=== PATIENT | male | born 1945 | race Caucasian/White ===

== ENCOUNTER 2019-11-11 06:21 | Day surgery (SDC) | payer OTHER ==
[2019-11-09 12:34] LABS: BASOPHILS % (AUTO) 0.9 % (0.0-5.0); EOSINOPHILS % (AUTO) 1.8 % (0.0-8.0); HEMATOCRIT 44.3 % (42-54); LYMPHOCYTES % (AUTO) 24.1 % (21.0-51.0); MEAN CORPUSCULAR HEMOGLOBIN 30.3 pg (27.0-33.0); MEAN CORPUSCULAR VOLUME 91.9 fL (79-99); MONOCYTES % (AUTO) 10.9 % (3.0-13.0); NEUTROPHILS % (AUTO) 62.1 % (40.0-77.0); PLATELET COUNT (AUTO) 187 K/uL (130-400); RED BLOOD CELL COUNT(AUTO) 4.82 MIL/uL (4.50-6.20); RED CELL DISTRIBUTION WIDTH 12.5 % (11.0-15.5); WHITE BLOOD COUNT (AUTO) 5.5 K/uL (4.8-10.8)
[2019-11-09 12:43] LABS: POTASSIUM 4.7 mmol/L (3.5-5.1)
[2019-11-09 12:57] VITALS: BP 168/78
--- NOTE | 2019-11-09 13:25 | NUR ---
ekg abnormal ekg reported to dr. roa. message left on his cell phone, pending call back
--- NOTE | 2019-11-09 14:03 | NUR ---
EKG PER DR. JULIO WAITE TO PROCEED WITH PLANNED SURGERY
[2019-11-11] VITALS (16 sets, daily range): BP systolic 95–140; BP diastolic 43–78
[~2019-11-11] VITALS: Ht 174 cm; Wt 85.9 kg
[2019-11-11] MEDS ORDERED: DEXAMETHASONE SOD PHOSPHATE 10MG/ML 1ML VIAL ONE ×2 (07:09→07:11)
[2019-11-11] MEDS ORDERED: ONDANSETRON HCL 4 MG/2 ML VIAL ONE (07:09)
[2019-11-11] MEDS ORDERED: LIDOCAINE PF 2% 5ML ABBOJECT ONE (07:09)
[2019-11-11] MEDS ORDERED: SUCCINYLCHOLINE 200MG/10ML SYR ONE (07:09)
[2019-11-11] MEDS ORDERED: PROPOFOL 10 MG/ML 20ML VIAL IV ONE (07:10)
[2019-11-11] MEDS ORDERED: MIDAZOLAM HCL 1 MG/ML 2ML VIAL ONE (07:10)
[2019-11-11] MEDS ORDERED: GLYCOPYRROLATE 1 MG/5 ML SYRINGE ONE (07:10)
[2019-11-11] MEDS ORDERED: ROCURONIUM 10MG/1ML SYR 10 MG/ML ML ONE (07:10)
[2019-11-11] MEDS ORDERED: NEOSTIGMINE 5MG/5ML SYR IV ONE (07:10)
[2019-11-11] MEDS ORDERED: FENTANYL CITRATE PF 50 MCG/1 ML 2ML VIAL ONE (07:10)
[2019-11-11] MEDS ORDERED: ROPIVACAINE 0.5% 5MG/ML 30ML IJ ONE (07:21)
[2019-11-11] MEDS: CEFAZOLIN SODIUM 1 GM VIAL IVP ONE ×2 (07:31→08:30)
[2019-11-11] MEDS ORDERED: ATOR40TA71 PO (07:32)
--- NOTE | 2019-11-11 07:41 | NUR ---
POTENTIAL FOR INFECTION: SHAVED RIGHT UPPER ARM / RIGHT SHOULDER PER DIMITRI MORENO, FOLLOWED BY WIPING WITH WADE: 2% CHLORHEXIDINE GLUCONATE CLOTH PATIENTS PRE-OP SKIN PREP.
[2019-11-11] MEDS ORDERED: LACTATED RINGERS 1000ML 1,000 ML IV SCH (08:00)
[2019-11-11] MEDS ORDERED: EPHEDRINE SULFATE 50 MG/ML AMPULE ONE (08:04)
[2019-11-11] MEDS ORDERED: EPINEPHRINE 1 MG/ML 30ML VIAL IJ ONE (08:09)
--- NOTE | 2019-11-11 13:20 | NUR ---
PT LEFT VIA WHEELCHAIR IN PVT CAR WITH INSTRUCTIONS HOW TO CAR FOR SLINGS AND D/C INSTRUCTION GIVEN TO WITH F/U APPT.
== END 2019-11-11 13:15 | disposition home or self-care (01) ==
LOC: DAH 06:21
PROVIDERS: ATTEND Orthopaedic Surgery Sports Medicine
DX: M75.101 Unspecified rotator cuff tear or rupture of right shoulder, not specified as traumatic (principal); M19.011 Primary osteoarthritis, right shoulder; M77.9 Enthesopathy, unspecified
CPT/HCPCS: 23412; 29824; 29826; 36415; 64415; 71045; 76942; 80048; 85025; 93005; A4213; A4221; A4222; A4223; A4649 ×5; A4663; A4930; A5120; A6223; A6260; C1713; J0171; J0330; J0690; J1100 ×2; J2001; J2250; J2405; J2704; J2710; J2795; J3010; J3490 ×2; J7030; J7120